=== PATIENT | male | born 1960 | race Caucasian/White ===

== ENCOUNTER → 2021-11-30 | Outpatient (CLI) | payer BC | LOC: M SOG 09:37 | PROVIDERS: ATTEND Orthopaedic Surgery | DX: M25.712 Osteophyte, left shoulder (principal) ==

== ENCOUNTER → 2021-12-14 | Outpatient (CLI) | payer BC | LOC: M SOG 09:23 | PROVIDERS: ATTEND Orthopaedic Surgery | DX: M54.9 Dorsalgia, unspecified (principal) ==